=== PATIENT | female | born 1975 | race Two or more races ===

== ENCOUNTER 2016-08-27 16:19 | Emergency (ER) | payer OTHER ==
[~2016-08-27] VITALS: Ht 152.4 cm; Wt 80.3 kg
[~2016-08-27 16:19] MED LIST: ATOR10TA PO; CITA-77 PO; INSULIN; LISI10TA6 PO; NOVOLOG; OMEP20CA5 PO; PIOG30TA37 PO; [UNRECOGNIZED DRUG - OTHER]
[2016-08-27 17:03] LABS: Basophils # (auto) 0 uL; Basophils % (auto) 0.2 % (0.0-2.0); Eosinophils # (auto) 0.2 uL; Eosinophils % (auto) 3.7 % (0.0-7.0); Hematocrit 33.8 % (36.0-46.0); Hemoglobin 11.4 g/dL (12.2-16.2); Lymphocytes % (auto) 25.4 % (10.0-50.0); Mean Corpuscular Hemoglobin 29.2 pg (28.0-32.0); Mean Corpuscular Hgb Conc. 33.6 g/dL (32.0-36.0); Mean Corpuscular Volume 86.9 fL (80.0-100.0); Mean Platelet Volume 9.9 fL (7.4-10.4); Monocytes # (auto) 0.2 uL; Neutrophils # (auto) 2.7 uL; Neutrophils % (auto) 65.7 % (37.0-80.0); Platelet Count (auto) 184 10^3/uL (140-450); Red Cell Distribution Width 18.2 % (11.6-16.0); White Blood Cell 4.1 10^3/uL (4.4-10.8)
[2016-08-27 17:40] LABS: Alkaline Phosphatase 214 U/L (45-117); Anion Gap 11 (5-15); Aspartate Aminotransferase 27 U/L (15-37); BUN/Creatinine Ratio 3.8; Bilirubin, Total 0.9 mg/dL (0.2-1.0); Blood Urea Nitrogen 3 mg/dL (7-18); Calcium 7.8 mg/dL (8.5-10.1); Carbon Dioxide 17 mmol/L (21-32); Chloride 118 mmol/L (98-107); GFR African American 101 mL/min; GFR Non-African American 83 mL/min; Glucose 151 mg/dL (74-106); Potassium 3.1 mmol/L (3.5-5.1); Sodium 146 mmol/L (136-145); Total Protein 6.7 g/dL (6.4-8.2)
[2016-08-27] MEDS ORDERED: traMADol HCL 50 MG TAB PO ONE (22:45)
[2016-08-27] MEDS ORDERED: ONDANSETRON ODT 4 MG TAB PO ONE (22:45)
[2016-08-28 00:56] VITALS: BP 131/85
== END 2016-08-28 02:52 | disposition home or self-care (01) ==
LOC: EDBD 16:19 → ER 16:30
DX: E87.6 Hypokalemia (principal); E86.0 Dehydration; E87.0 Hyperosmolality and hypernatremia; E66.01 Morbid (severe) obesity due to excess calories; E22.0 Acromegaly and pituitary gigantism; Z68.34 Body mass index [BMI] 34.0-34.9, adult; I10 Essential (primary) hypertension; E11.9 Type 2 diabetes mellitus without complications; Z87.442 Personal history of urinary calculi; Z90.49 Acquired absence of other specified parts of digestive tract; Z90.89 Acquired absence of other organs; Z98.51 Tubal ligation status; Z88.6 Allergy status to analgesic agent
CPT/HCPCS: 36415; 70450; 80053; 84484; 85025; 93005; 99285; Q0162

== ENCOUNTER 2022-07-23 01:04 | Emergency (ER) | payer OTHER ==
[~2022-07-23] VITALS: Ht 149.9 cm; Wt 79.5 kg
[~2022-07-23 01:04] MED LIST changes: +LISI-716 PO; -LISI10TA6 PO; -OMEP20CA5 PO; +OMEP20CA74 PO; +PIOG1TAB37 PO; -PIOG30TA37 PO
[2022-07-23] MEDS ORDERED: TETRACAINE HCL 0.5% OPTH(EYE) SOLN 4ML RIGHTEYE ONE (01:30)
[2022-07-23] MEDS ORDERED: CIPRSUS OT (04:55)
[2022-07-23 05:00] VITALS: BP 167/90
== END 2022-07-23 05:02 | disposition home or self-care (01) ==
LOC: ER 01:04
DX: S00.211A Abrasion of right eyelid and periocular area, initial encounter (principal); E11.9 Type 2 diabetes mellitus without complications; I10 Essential (primary) hypertension; Z98.51 Tubal ligation status; Z88.6 Allergy status to analgesic agent; Z90.49 Acquired absence of other specified parts of digestive tract; Z87.442 Personal history of urinary calculi; X58.XXXA Exposure to other specified factors, initial encounter; Y93.89 Activity, other specified; Y92.89 Other specified places as the place of occurrence of the external cause; Y99.8 Other external cause status